=== PATIENT | female | born 1990 | race Caucasian/White ===

== ENCOUNTER 2018-05-21 00:16 | Emergency (ER) | payer SELFPAY ==
[2018-05-21 00:47] VITALS: BP 143/94; PULSE 82; TEMP 98.5; BMI 31.6
--- NOTE | 2018-05-21 01:08 | PDOC ---
Attending Attestation - Resident Resident Name: Jorge Guerra - ED Attending Attestation I have performed the following: I have examined & evaluated the patient, The case was reviewed & discussed with the resident, I agree w/resident's findings & plan - HPI HPI: 05/21/18 01:19 28-year-old female with left-sided abdominal pain radiating into the left flank, aching in nature There is no associated vomiting, diarrhea urinary symptoms or vaginal discharge. - Physicial Exam PE: 05/21/18 01:16 . Agree with resident's exam - Medical Decision Making 05/21/18 01:20 28-year-old female with left-sided abdominal and flank pain Labs and urinalysis pending 05/21/18 02:54 Patient has tenderness along the left flank and left paravertebral musculature including the left iliopsoas, possibly responsible for patient's source of pain CT scan shows an incidental right-sided ovarian cyst with no findings consistent with patient's pain pattern Patient given Toradol 30 mg IM prior to discharge Patient advised to follow-up with her CASTING OPERATOR HELPER in regards to her ovarian cyst and return should her condition worsen in anyway
--- NOTE | 2018-05-21 01:23 | PDOC ---
History of Present Illness - General Chief Complaint: Pain, Acute Stated Complaint: ABD PAIN Time Seen by Provider: 05/21/18 01:05 History Source: Patient - History of Present Illness Initial Comments: 05/21/18 01:16 28f with pmh of c-sections x2 presents to the ed with left flank pain radiating to the groin since last night Sunday 10pm. The pain is colicky and takes her breath away when it peaks. No difficulty urinating. She never had kidneys stones in the past but her sister did. Had some nausea earlier today but no vomiting. Denies dysuria, fever, diarrhea. Past History - Past Medical History Allergies/Adverse Reactions: Allergies Allergy/AdvReac Type Severity Reaction Status Date / Time Penicillins Allergy Severe Itching Verified 05/21/18 02:42 Home Medications: Ambulatory Orders NK [No Known Home Medication] 05/21/18 - Suicide/Smoking/Psychosocial Hx Smoking History: Current some day smoker Number of Cigarettes Smoked Daily: 1 Information on smoking cessation initiated: Yes Hx Alcohol Use: Yes (Social) Drug/Substance Use Hx: No Review of Systems - Review of Systems Able to Perform ROS?: Yes Is the patient limited Bolivian proficient: No Constitutional: No: Symptoms Reported HEENTM: No: Symptoms Reported Respiratory: No: Symptoms reported Cardiac (ROS): No: Symptoms Reported ABD/GI: Yes: See HPI : Yes: See HPI Musculoskeletal: No: Symptoms Reported Integumentary: No: Symptoms Reported Neurological: No: Symptoms reported All Other Systems: Reviewed and Negative *Physical Exam - Vital Signs Last Vital Signs Temp Pulse Resp BP Pulse Ox 98.5 F 82 20 143/94 100 05/21/18 00:38 05/21/18 00:38 05/21/18 00:38 05/21/18 00:38 05/21/18 00:38 - Physical Exam General Appearance: Yes: Nourished, Appropriately Dressed, Moderate Distress HEENT: positive: EOMI, MURIEL, Normal ENT Inspection Respiratory/Chest: positive: Lungs Clear, Normal Breath Sounds. negative: Chest Tender, Respiratory Distress Cardiovascular: positive: Regular Rhythm, Regular Rate, S1, S2 Gastrointestinal/Abdominal: positive: Normal Bowel Sounds, Soft Musculoskeletal: positive: CVA Tenderness (L) Integumentary: positive: Normal Color, Dry, Warm Neurologic: positive: Fully Oriented, Alert, Normal Mood/Affect Moderate Sedation - Procedure Monitoring Vital Signs: Procedure Monitoring Vital Signs Temperature 98.5 F 05/21/18 00:38 Pulse Rate 82 05/21/18 00:38 Respiratory Rate 20 05/21/18 00:38 Blood Pressure 143/94 05/21/18 00:38 O2 Sat by Pulse Oximetry (%) 100 05/21/18 00:38 ED Treatment Course - LABORATORY CBC & Chemistry Diagram: 05/21/18 02:05 05/21/18 02:05 Medical Decision Making - Medical Decision Making 05/21/18 01:31 28F with left cva tenderness with likely stone vs msk strain Will obtain urine preg, UA, cx and spiral renal CT 05/21/18 02:51 Ct negative for stones, positive right 5cm ovarian cyst. Will discharge with toradol and OBGYN follow up *DC/Admit/Observation/Transfer Diagnosis at time of Disposition: Abdominal pain - Discharge Dispostion Disposition: HOME Condition at time of disposition: Improved Decision to Admit order: No - Referrals Referrals: Robyn Ellison MD [Staff Physician] - - Patient Instructions Printed Discharge Instructions: Ovarian Cyst Additional Instructions: Follow up with your obgyn doctor. Come back to the emergency department for any new, worsening or concerning symptom. - Post Discharge Activity
[2018-05-21 01:29] LABS: URINE APPEARANCE CLEAR; URINE BILIRUBIN NEGATIVE (<2.0 mg/dL); URINE COLOR STRAW; URINE GLUCOSE (UA) NEGATIVE (NEGATIVE); URINE KETONE NEGATIVE (NEGATIVE); URINE LEUK ESTERASE NEGATIVE (NEGATIVE); URINE NITRITE NEGATIVE (NEGATIVE); URINE PROTEIN NEGATIVE (NEGATIVE); URINE UROBILINOGEN NEGATIVE mg/dL (0.2-1.0)
[2018-05-21 01:30] LABS: HCG,QUALITATIVE URINE Negative
[2018-05-21] MEDS ORDERED: KETOROLAC TROMETHAMINE 30 MG/1 ML VIAL IM ONE (02:50)
--- NOTE | 2018-05-21 02:55 | PDOC ---
*Physical Exam - Vital Signs Last Vital Signs Temp Pulse Resp BP Pulse Ox 98.5 F 82 20 143/94 100 05/21/18 00:38 05/21/18 00:38 05/21/18 00:38 05/21/18 00:38 05/21/18 00:38 ED Treatment Course - LABORATORY CBC & Chemistry Diagram: 05/21/18 02:05 05/21/18 02:05 - ADDITIONAL ORDERS Additional order review: Laboratory Results 05/21/18 01:20 Urine Color Straw Urine Appearance Clear Urine pH 8.0 Ur Specific [place] 1.010 Urine Protein Negative Urine Glucose (UA) Negative Urine Ketones Negative Urine Blood Negative Urine Nitrite Negative Urine Bilirubin Negative Urine Urobilinogen Negative Ur Leukocyte Esterase Negative Urine HCG, Qual Negative 05/21/18 02:05 RBC Cancelled MCV Cancelled MCHC Cancelled RDW Cancelled MPV Cancelled Neutrophils % Cancelled Lymphocytes % Cancelled Monocytes % Cancelled Eosinophils % Cancelled Basophils % Cancelled - RADIOLOGY Radiology Studies Ordered: Category Date Time Status SPIRAL- RENAL-STONE CT [CT] Stat CT Scan 05/21/18 01:23 Taken *DC/Admit/Observation/Transfer Diagnosis at time of Disposition: Left flank pain - Discharge Dispostion Disposition: HOME Condition at time of disposition: Improved - Referrals Referrals: Robyn Ellison MD [Staff Physician] - - Patient Instructions Printed Discharge Instructions: Ovarian Cyst, DI for Flank Pain Additional Instructions: Follow up with your obgyn doctor. Come back to the emergency department for any new, worsening or concerning symptom. - Post Discharge Activity
[2018-05-21] MEDS ORDERED: KETOROLAC TROMETHAMINE 30 MG/1 ML VIAL ONE (03:15)
[2018-05-21 03:35] LABS: BASO % 1.4 % (0-2.0); EOS % 2.9 % (0-4.5); HEMATOCRIT 44.3 % (32.4-45.2); HEMOGLOBIN 15.7 GM/dL (10.7-15.3); LYMPH % 32.9 % (8-40); MCH 33.3 pg (25.7-33.7); MCHC 35.4 g/dl (32.0-36.0); MEAN CELL VOLUME 94.2 fl (80-96); MEAN PLT VOLUME 8.2 fl (7.5-11.1); MONO % 6.8 % (3.8-10.2); PLATELET COUNT 307 K/MM3 (134-434); RDW 12.8 % (11.6-15.6); WHITE BLOOD COUNT 13.4 K/mm3 (4.0-10.0)
[2018-05-21 04:42] LABS: CREATININE 0.6 mg/dL (0.55-1.3)
[2018-05-21 04:43] LABS: ALBUMIN 3.7 g/dl (3.4-5.0); CO2 26 mmol/L (21-32)
[2018-05-21 04:54] LABS: ALK PHOS 73 U/L (45-117); ANION GAP 7 MMOL/L (8-16); BILIRUBIN,TOTAL 0.3 mg/dL (0.2-1); BLOOD UREA NITROGEN 8 mg/dL (7-18); CALCIUM 9.4 mg/dL (8.5-10.1); CHLORIDE 102 mmol/L (98-107); GLUCOSE,RANDOM 116 mg/dL (74-106); LIPASE 166 U/L (73-393); POTASSIUM 3.9 mmol/L (3.5-5.1); SGOT/AST 37 U/L (15-37); SGPT/ALT 95 U/L (13-61); SODIUM 134 mmol/L (136-145); TOT PROT 7.6 g/dl (6.4-8.2)
--- NOTE | 2018-05-21 04:56 | PDOC ---
*Physical Exam - Vital Signs Last Vital Signs Temp Pulse Resp BP Pulse Ox 98.5 F 82 20 143/94 100 05/21/18 00:38 05/21/18 00:38 05/21/18 00:38 05/21/18 00:38 05/21/18 00:38 ED Treatment Course - LABORATORY CBC & Chemistry Diagram: 05/21/18 03:20 05/21/18 03:20 - ADDITIONAL ORDERS Additional order review: Laboratory Results 05/21/18 05/21/18 05/21/18 03:20 02:05 01:20 Sodium 134 L Cancelled Potassium 3.9 Cancelled Chloride 102 Cancelled Carbon Dioxide 26 Cancelled Anion Gap 7 L Cancelled BUN 8 Cancelled Creatinine 0.6 Cancelled Creat Clearance w eGFR > 60 Cancelled Random Glucose 116 H Cancelled Calcium 9.4 Cancelled Total Bilirubin 0.3 Cancelled AST 37 Cancelled ALT 95 H Cancelled Alkaline Phosphatase 73 Cancelled Total Protein 7.6 Cancelled Albumin 3.7 Cancelled Lipase 166 Cancelled Urine Color Straw Urine Appearance Clear Urine pH 8.0 Ur Specific [place] 1.010 Urine Protein Negative Urine Glucose (UA) Negative Urine Ketones Negative Urine Blood Negative Urine Nitrite Negative Urine Bilirubin Negative Urine Urobilinogen Negative Ur Leukocyte Esterase Negative Urine HCG, Qual Negative 05/21/18 05/21/18 03:20 02:05 RBC 4.70 Cancelled MCV 94.2 Cancelled MCHC 35.4 Cancelled RDW 12.8 Cancelled MPV 8.2 Cancelled Neutrophils % 56.0 Cancelled Lymphocytes % 32.9 Cancelled Monocytes % 6.8 Cancelled Eosinophils % 2.9 Cancelled Basophils % 1.4 Cancelled - RADIOLOGY Radiology Studies Ordered: Category Date Time Status SPIRAL- RENAL-STONE CT [CT] Stat CT Scan 05/21/18 01:23 Taken - Medications Given in the ED: ED Medications Discontinued Medications Generic Name Dose Route Start Last Admin Trade Name Freq PRN Reason Stop Dose Admin Ketorolac Tromethamine 30 mg 05/21/18 02:50 05/21/18 03:23 Toradol Injection - IM 05/21/18 02:51 30 mg ONCE ONE Administration Medical Decision Making - Medical Decision Making 05/21/18 04:54 All labs back WNL PERC rule: zero criteria Well's score: 0 Low suspicion for PE. OK to discharge. *DC/Admit/Observation/Transfer Diagnosis at time of Disposition: Left flank pain - Discharge Dispostion Disposition: HOME Condition at time of disposition: Improved - Referrals Referrals: Robyn Ellison MD [Staff Physician] - - Patient Instructions Printed Discharge Instructions: Ovarian Cyst, DI for Flank Pain Additional Instructions: Follow up with your obgyn doctor. Come back to the emergency department for any new, worsening or concerning symptom. - Post Discharge Activity
== END 2018-05-21 05:11 | disposition home or self-care (01) ==
LOC: JER 00:16
DX: N83.201 Unspecified ovarian cyst, right side (principal)
CPT/HCPCS: 36415; 74176-TC; 80053; 81003; 83690; 84703; 85025; 87086; 99281-25; 99282-25

== ENCOUNTER 2019-04-19 22:17 | Emergency (ER) | payer SELFPAY ==
[2019-04-19 22:29] VITALS: BP 117/77; PULSE 84; TEMP 98.5; BMI 32.1
--- NOTE | 2019-04-19 23:41 | PDOC ---
History of Present Illness - General Chief Complaint: Cold Symptoms Stated Complaint: COLD SYMPTOMS Time Seen by Provider: 04/19/19 22:36 History Source: Patient Exam Limitations: No Limitations Past History - Past Medical History Allergies/Adverse Reactions: Allergies Allergy/AdvReac Type Severity Reaction Status Date / Time Penicillins Allergy Severe Itching Verified 04/19/19 22:53 Home Medications: Ambulatory Orders Oseltamivir Phosphate [Tamiflu] 75 mg PO BID #10 capsule 04/19/19 COPD: No - Psycho Social/Smoking Cessation Hx Smoking History: Never smoked Number of Cigarettes Smoked Daily: 1 Hx Alcohol Use: Yes (Social) Drug/Substance Use Hx: No *Physical Exam - Vital Signs Last Vital Signs Temp Pulse Resp BP Pulse Ox 98.5 F 84 19 117/77 98 04/19/19 22:27 04/19/19 22:27 04/19/19 22:27 04/19/19 22:27 04/19/19 22:27 - Physical Exam General Appearance: No: Apparent Distress HEENT: positive: TMs Normal, Pharynx Normal, Nasal Congestion, Rhinorrhea Respiratory/Chest: positive: Lungs Clear, Normal Breath Sounds. negative: Respiratory Distress Cardiovascular: positive: Regular Rhythm, Regular Rate, S1, S2. negative: Murmur Gastrointestinal/Abdominal: positive: Normal Bowel Sounds, Soft. negative: Tender, Distended, Guarding, Rebound Integumentary: positive: Normal Color Neurologic: positive: Alert Medical Decision Making - Medical Decision Making 28 y/o F with no sig pmh presents with fever from yesterday along with cough, congestion, rhinorrhea, sore throat. Denies sob, cp, abd pain, n/v/d, recent travel. +sick contacts in family. Took Tylenol at 4 PM today. Flu negative However, patient's son, who was also evaluated at the same time, is positive for flu Patient prefers to start Tamiflu medication as well 04/19/19 23:35 Discharge - Discharge Information Problems reviewed: Yes Clinical Impression/Diagnosis: Viral URI Condition: Stable Disposition: HOME - Admission No - Additional Discharge Information Prescriptions: Oseltamivir Phosphate [Tamiflu] 75 mg PO BID #10 capsule Prescription Drug Monitoring Program (I-STOP) results: I-STOP not reviewed - Follow up/Referral - Patient Discharge Instructions Patient Printed Discharge Instructions: DI for Viral Upper Respiratory Infection -- Adult Additional Instructions: Thank you for choosing [facility]. It was a pleasure taking care of you. You have viral infection Alternate between Tylenol every 4 and Motrin every 6 hours as needed for fever Recommend rest and hydration Follow-up with your doctor in 2 days Return to the Emergency Department if your symptoms worsen or persist or have other concerning symptoms. - Post Discharge Activity
== END 2019-04-20 00:23 | disposition home or self-care (01) ==
LOC: JER 22:17
DX: J06.9 Acute upper respiratory infection, unspecified (principal); B97.89 Other viral agents as the cause of diseases classified elsewhere
CPT/HCPCS: 87804; 99281-25

== ENCOUNTER 2019-11-25 02:52 | Emergency (ER) | payer SELFPAY ==
[2019-11-25 03:22] VITALS: BMI 29.2
--- NOTE | 2019-11-25 03:26 | PDOC ---
History of Present Illness - General Chief Complaint: Pain, Acute Stated Complaint: ABD PAIN - History of Present Illness Initial Comments: 11/25/19 03:59 29F w/ h/o recent visit to ED for abdominal pain found to be UTI p/w epigastric, LUQ, LLQ, and suprapubic pain since last night. She was eating tacos and started to feel the pain. She was able to fall asleep around 2300 but woke up at 0200 with more severe pain. She then vomited and has vomited 6 more times, each event occurring after an attempt to drink water. She has never experienced pain like this before, somewhat positional; if she lies on her left side the pain is worse. She denies hematuria, dysuria, vaginal bleeding or discharge. Last time having intercourse was one week ago. She had a hysterectomy in 2014. Denies h/o hernia. Denies flatus and BM since yesterday Had C/S in 2014. Denies fevers, cough, rash. 11/25/19 04:18 11/25/19 04:26 Past History - Travel History Traveled outside of the country in the last 30 days: No Close contact w/someone who was outside of country & ill: No - Medical History Allergies/Adverse Reactions: Allergies Allergy/AdvReac Type Severity Reaction Status Date / Time Penicillins Allergy Severe Itching Verified 11/25/19 03:22 Home Medications: Ambulatory Orders Nitrofurantoin Macrocrystal [Nitrofurantoin] 100 mg PO BID 5 Days #10 capsule 11/07/19 Famotidine [Pepcid] 20 mg PO DAILY #14 tablet 11/25/19 COPD: No - Reproductive History LMP comment: hysterectomy in 2015 Is Patient Now?: No - Psycho-Social/Smoking History Smoking History: Never smoked Have you smoked in the past 12 months: No Number of Cigarettes Smoked Daily: 1 Information on smoking cessation initiated: No - Substance Abuse Hx (Audit-C & DAST Scrn) How often the patient has a drink containing alcohol: Monthly or less Score: In Men: 4 or > Positive; In Women: 3 or > Positive: 0 Screen Result (Pos requires Nsg. Audit-10AR): Negative In the last yr the pt used illegal drug/Rx for NonMed reason: No Score: Yes response is considered Positive: 0 Screen Result (Positive result requires Nsg. DAST-10): Negative Review of Systems - Review of Systems Able to Perform ROS?: Yes Is the patient limited Ecuadorean proficient: No Constitutional: No: Chills, Fever, Weakness, Unintentional Wgt. Loss HEENTM: No: Blurred Vision, Tinnitus Respiratory: No: Cough, SOB with Exertion Cardiac (ROS): No: Chest Pain, Edema ABD/GI: Yes: Nausea, Poor Fluid Intake, Vomiting. No: Abdominal Distended, Blood Streaked Bowels, Rectal Bleeding : No: Burning, Dysuria, Discharge, Frequency, Hematuria Musculoskeletal: No: Muscle Weakness, Neck Pain Integumentary: No: Erythema, Rash Neurological: No: Headache, Tingling, Dizziness Endocrine: No: Excessive Sweating, Increased Urine *Physical Exam - Vital Signs Last Vital Signs Temp Pulse Resp BP Pulse Ox 98.5 F 105 H 20 149/98 100 11/25/19 03:00 11/25/19 03:00 11/25/19 03:00 11/25/19 03:00 11/25/19 03:00 - Physical Exam General Appearance: Yes: Nourished, Appropriately Dressed, Mild Distress HEENT: positive: EOMI, Normal Voice. negative: Nasal Congestion, Rhinorrhea, Excessive drooling Neck: positive: Trachea midline, Supple Respiratory/Chest: positive: Lungs Clear, Normal Breath Sounds. negative: Chest Tender, Respiratory Distress, Accessory Muscle Use, Labored Respiration Cardiovascular: positive: Regular Rate, S1, S2, Tachycardia Gastrointestinal/Abdominal: positive: Normal Bowel Sounds, Tender, Protuberent, Tenderness. negative: Organomegaly, Rebound, Hernia, Hepatomegaly, Splee nomegaly Musculoskeletal: positive: Normal Inspection. negative: CVA Tenderness Integumentary: positive: Normal Color, Dry, Warm, Moist. negative: Jaundice ED Treatment Course - LABORATORY CBC & Chemistry Diagram: 11/25/19 04:38 11/25/19 04:38 Medical Decision Making - Medical Decision Making 11/25/19 04:30 SBO: no flatus + no BM + vomiting + elevated WBC Kidney Stone: elevated WBC + ABD pain. no hematuria or dysuria Hernia: obese + ABD pain Pancreatitis: tender epigastrum. PID/STI: recent sexual activity + LLQ ABD pain. no dysuria, itching, discharge 11/25/19 04:32 11/25/19 06:00 Discharge - Discharge Information Problems reviewed: Yes Clinical Impression/Diagnosis: Abdominal pain, Left ovarian cyst, Vaginal candidiasis, Hemorrhagic cyst of left ovary Condition: Improved Disposition: HOME - Additional Discharge Information Prescriptions: Famotidine [Pepcid] 20 mg PO DAILY #14 tablet - Follow up/Referral Referrals: Flynn Quinones MD [Staff Physician] - - Patient Discharge Instructions Patient Printed Discharge Instructions: DI for Vaginal Yeast Infection, DI for Ovarian Cyst Additional Instructions: Additional Instructions: Please return to the emergency department with any new or worsening symptoms or concerns including worsening pain, inability to tolerate food, persistent vomiting, fever. Please follow up with your primary care physician within 72 hours. Please followup with the referral for Portable Sawmill Operator within 1 week to further evaluate your ovarian cysts and yeast infection. The left ovarian cyst is changed in appearance from your previous CT exam. We have provided you with copies of your CT and transvaginal ultrasound results. Please abstain from taking alcohol for the next week to prevent interactions with the antifungal medication you received in the ER You may take tylenol 650mg as needed for abdominal pain. Please take pepcid 20mg daily for 2 weeks. The script has been sent to the pharmacy here at [facility] across the latif from the ER. Instrucciones adicionales: Regrese al departamento de emergencias con cualquier sntoma nuevo o que empeore o inquietudes, incluido el empeoramiento del dolor, la incapacidad para tolerar los alimentos, los vmitos persistentes y la fiebre. Pretty un seguimiento con krishnan mdico de atencin primaria dentro de las 72 horas. Pretty un seguimiento con la referencia del gineclogo dentro de 1 semana para evaluar ms a fondo ngoc quistes ovricos y la candidiasis. El quiste de ovario mali bianchi cambiado de apariencia con respecto a krishnan examen de TC anterior. Le hemos proporcionado copias de los resultados de krishnan tomografa computarizada y ecografa transvaginal. Abstngase de angie alcohol catlheen la prxima semana para evitar interacciones con el medicamento antimictico que recibi en la derek de emergencias Puede angie tylenol 650 mg segn sea necesario para el dolor abdominal. [place] pepcid 20 mg al da cathleen 2 semanas. El joslyn bianchi sido enviado a la farmacia aqu en [facility] al otro lado del pasillo de la derek de emergencias. Print Language: ARMENIAN - Post Discharge Activity
[2019-11-25] MEDS ORDERED: ACETAMINOPHEN 1000 MG/100 ML VIAL (NON FORMULARY) IVPB ONE (04:16)
[2019-11-25] MEDS ORDERED: LACTATED RINGERS SOLUTION 1000 ML INFUS.BAG IV ONE (04:16)
--- NOTE | 2019-11-25 04:21 | PDOC ---
Attending Attestation - Resident Resident Name: Nuno Wong - ED Attending Attestation I have performed the following: I have examined & evaluated the patient, The case was reviewed & discussed with the resident, I agree w/resident's findings & plan, Exceptions are as noted - HPI HPI: 11/25/19 04:18 29 yo F h/o hysterectomy p/w L sided abdominal pain x2 days. States never had this pain before. Endorses nausea and multiple episodes of vomiting. Last BM was prior to the onset of pain. No flatus since onset of pain. - Physicial Exam PE: 11/25/19 04:20 General: uncomfortable appearing Abdomen: obese limiting exam, soft, +epigastric and LUQ ttp, no rebound, no guarding, no masses - Medical Decision Making 11/25/19 04:20 29 yo F with L sided abdominal pain, possible kidney stone vs. obstruction vs. gastritis. Plan: -labs -urine -CT a/p -pain control as needed -reassess This clinical encounter is taking place during a federal and state health care emergency attributable to the novel Renae Virus pandemic. The [place] of the Department of Health and Human Services has declared, pursuant to the Public Health Service Act 319F-3 (42 U.S.C. 247d-6d), that a covered persons activities related to medical countermeasures against COVID-19 will be immune from liability under Federal and State law. 11/25/19 06:46 Pt. signed out to incoming day team. Discharge - Discharge Information Problems reviewed: Yes Clinical Impression/Diagnosis: Abdominal pain, Left ovarian cyst, Vaginal candidiasis, Hemorrhagic cyst of left ovary Condition: Improved Disposition: HOME - Additional Discharge Information Prescriptions: Famotidine [Pepcid] 20 mg PO DAILY #14 tablet - Follow up/Referral Referrals: Flynn Quinones MD [Staff Physician] - - Patient Discharge Instructions Patient Printed Discharge Instructions: DI for Vaginal Yeast Infection, DI for Ovarian Cyst Additional Instructions: Additional Instructions: Please return to the emergency department with any new or worsening symptoms or concerns including worsening pain, inability to tolerate food, persistent vomiting, fever. Please follow up with your primary care physician within 72 hours. Please followup with the referral for Horizontal Boring Mill Operator within 1 week to further evaluate your ovarian cysts and yeast infection. The left ovarian cyst is changed in appearance from your previous CT exam. We have provided you with copies of your CT and transvaginal ultrasound results. Please abstain from taking alcohol for the next week to prevent interactions with the antifungal medication you received in the ER You may take tylenol 650mg as needed for abdominal pain. Please take pepcid 20mg daily for 2 weeks. The script has been sent to the pharmacy here at [facility] across the lat[place] from the ER. Instrucciones adicionales: Regrese al departamento de emergencias con cualquier sntoma nuevo o que empeore o inquietudes, incluido el empeoramiento del dolor, la incapacidad para tolerar los alimentos, los vmitos persistentes y la fiebre. Pretty un seguimiento con krishnan mdico de atencin primaria dentro de las 72 horas. Pretty un seguimiento con la referencia del gineclogo dentro de 1 semana para evaluar ms a fondo ngoc quistes ovricos y la candidiasis. El quiste de ovario mali bianchi cambiado de apariencia con respecto a krishnan examen de TC anterior. Le hemos proporcionado copias de los resultados de krishnan tomografa computarizada y ecografa transvaginal. Abstngase de angie alcohol cathleen la prxima semana para evitar interacciones con el medicamento antimictico que recibi en la derek de emergencias Puede angie tylenol 650 mg segn sea necesario para el dolor abdominal. [place] pepcid 20 mg al da cathleen 2 semanas. El joslyn bianchi sido enviado a la farmacia aqu en [facility] al otro lado del pasillo de la derek de emergencias. Print Language: CHILEAN - Post Discharge Activity
[2019-11-25] MEDS ORDERED: ACETAMINOPHEN INJECTION 100 ML IVPB ONE (04:22)
[2019-11-25] MEDS ORDERED: FAMOTIDINE 20 MG/50 ML IVPB 20 MG/50 ML MG IVPB ONE ×2 (04:24→04:43)
[2019-11-25] MEDS ORDERED: ONDANSETRON 4 MG/2 ML VIAL IVPUSH ONE (04:25)
[2019-11-25 05:13] LABS: BASO % 0.7 % (0-2.0); EOS % 1.3 % (0-4.5); HEMATOCRIT 42.5 % (32.4-45.2); HEMOGLOBIN 14.5 GM/dL (10.7-15.3); LYMPH % 12.9 % (8-40); MCH 31.7 pg (25.7-33.7); MCHC 34.2 g/dl (32.0-36.0); MEAN CELL VOLUME 92.6 fl (80-96); MEAN PLT VOLUME 8.5 fl (7.5-11.1); MONO % 5.2 % (3.8-10.2); NEUT % 79.9 % (42.8-82.8); PLATELET COUNT 311 K/MM3 (134-434); RBC 4.59 M/mm3 (3.60-5.2); WHITE BLOOD COUNT 16.9 K/mm3 (4.0-10.0)
[2019-11-25 05:26] LABS: ALBUMIN 3.8 g/dl (3.4-5.0); BILIRUBIN,TOTAL 0.6 mg/dL (0.2-1); BLOOD UREA NITROGEN 7.9 mg/dL (7-18); CALCIUM 8.7 mg/dL (8.5-10.1); CREATININE 0.7 mg/dL (0.55-1.3); TOT PROT 7.6 g/dl (6.4-8.2)
[2019-11-25 10:12] VITALS: BP 103/60; PULSE 74; TEMP 98
--- NOTE | 2019-11-25 10:36 | EKG ---
Test Reason : Blood Pressure : / mmHG Vent. Rate : 087 BPM Atrial Rate : 087 BPM P-R Int : 154 ms QRS Dur : 078 ms QT Int : 338 ms P-R-T Axes : 043 023 028 degrees QTc Int : 406 ms NORMAL SINUS RHYTHM NORMAL ECG WHEN COMPARED WITH ECG OF 07-NOV-2019 06:39, NO SIGNIFICANT CHANGE WAS FOUND Confirmed by Emile Blue MD ([id number]) on 11/25/2019 10:36:19 AM Referred By: Confirmed By:Emile Blue MD
--- NOTE | 2019-11-25 10:56 | PDOC ---
*Physical Exam - Vital Signs Last Vital Signs Temp Pulse Resp BP Pulse Ox 98.0 F 74 18 103/60 100 11/25/19 10:11 11/25/19 10:11 11/25/19 10:11 11/25/19 10:11 11/25/19 10:11 ED Treatment Course - LABORATORY CBC & Chemistry Diagram: 11/25/19 04:38 11/25/19 04:38 - ADDITIONAL ORDERS Additional order review: Laboratory Results 11/25/19 11/25/19 04:38 04:30 Sodium 138 Potassium 4.0 Chloride 106 Carbon Dioxide 25 Anion Gap 8 BUN 7.9 Creatinine 0.7 Est GFR (CKD-EPI)AfAm 134.75 Est GFR (CKD-EPI)NonAf 116.26 Random Glucose 113 H Calcium 8.7 Total Bilirubin 0.6 AST 32 ALT 81 H Alkaline Phosphatase 78 Total Protein 7.6 Albumin 3.8 Lipase 57 L Urine HCG, Qual Negative 11/25/19 04:38 RBC 4.59 MCV 92.6 MCHC 34.2 RDW 13.0 MPV 8.5 Neutrophils % 79.9 D Lymphocytes % 12.9 D Monocytes % 5.2 Eosinophils % 1.3 Basophils % 0.7 - Medications Given in the ED: ED Medications Discontinued Medications Generic Name Dose Route Start Last Admin Trade Name Freq PRN Reason Stop Dose Admin Acetaminophen 1,000 mg 11/25/19 04:16 11/25/19 04:46 Ofirmev Injection - IVPB 11/25/19 04:17 1,000 mg ONCE ONE Administration Famotidine/Sodium Chloride 20 mg in 50 mls @ 100 mls/hr 11/25/19 04:24 11/25/19 04:46 Pepcid 20 Mg Premixed Ivpb - IVPB 11/25/19 04:53 100 mls/hr ONCE ONE Administration Lactated Ringer's 1,000 ml 11/25/19 04:16 11/25/19 04:46 Lactated Ringers Solution IV 11/25/19 04:17 1,000 ml ONCE ONE Administration Ondansetron HCl 4 mg 11/25/19 04:25 11/25/19 04:46 Zofran Injection IVPUSH 11/25/19 04:26 4 mg ONCE ONE Administration Medical Decision Making - Medical Decision Making 11/25/19 10:[address] Judith night team 29F w/ h/o recent visit to ED for abdominal pain found to be UTI p/w epigastric, LUQ, LLQ, and suprapubic pain since last night. Will followup CT and dispo appropriately 11/25/19 10:56 CT Abd/Pel: Adnexa: Complex right ovarian cystic structure is redemonstrated and appears similar in size, currently measuring 5.1 x 3.6 cm (compared to 4.7 x 4.3 cm). The aforementioned cyst demonstrates a septation not previously seen and scant adjacent fat stranding, however comparison is limited due to absence of IV contrast on the prior study. Left adnexal cyst measuring 2.4 x 3.2 cm was not clearly visualized on the prior study again due to absence of IV contrast. Bones: No lytic or blastic lesions. Other: Lipoma demonstrated along the left flank, measuring 5.6 x 3.4 cm (image 60, series 1). The aforementioned lipoma has increased in size compared to the prior study. IMPRESSION: Complex right ovarian cystic structure measuring up to 5.1 cm is redemonstrated with scant adjacent fat stranding. Recommend follow-up ultrasound for further characterization of this finding and of th e 3.2 cm left adnexal cyst. Diffuse hepatic steatosis. Left flank lipoma measuring up to 5.6 cm. 11/25/19 12:49 On repeat exam patient with LLQ and suprapubic pain as well as tendnerness. Given CT read and exam findings will proceed with TVUS, UA, and pelvic exam Pelvic exam with normal appearing genitalia, closed cervix with no lesions or blood, clumpy white discharge in the vaginal vault, no CMT or adnexal ttp will treat for candidiasis pending UA and TVUS then dispo 11/25/19 13:31 UA negative with PH>9 likely consistent with torin TVUS: with hemorrhagic cyst will Dc with return pcxns and referrals Discharge - Discharge Information Problems reviewed: Yes Clinical Impression/Diagnosis: Abdominal pain, Left ovarian cyst, Vaginal candidiasis, Hemorrhagic cyst of left ovary Condition: Improved Disposition: HOME - Additional Discharge Information Prescriptions: Famotidine [Pepcid] 20 mg PO DAILY #14 tablet - Follow up/Referral Referrals: Flynn Quinones MD [Staff Physician] - - Patient Discharge Instructions Patient Printed Discharge Instructions: DI for Vaginal Yeast Infection, DI for Ovarian Cyst Additional Instructions: Additional Instructions: Please return to the emergency department with any new or worsening symptoms or concerns including worsening pain, inability to tolerate food, persistent vomiting, fever. Please follow up with your primary care physician within 72 hours. Please followup with the referral for [employer] within 1 week to further evaluate your ovarian cysts and yeast infection. The left ovarian cyst is changed in appearance from your previous CT exam. We have provided you with copies of your CT and transvaginal ultrasound results. Please abstain from taking alcohol for the next week to prevent interactions with the antifungal medication you received in the ER You may take tylenol 650mg as needed for abdominal pain. Please take pepcid 20mg daily for 2 weeks. The script has been sent to the pharmacy here at [facility] across the lat[place] from the ER. Instrucciones adicionales: Regrese al departamento de emergencias con cualquier sntoma nuevo o que empeore o inquietudes, incluido el empeoramiento del dolor, la incapacidad para tolerar los alimentos, los vmitos persistentes y la fiebre. Pretty un seguimiento con krishnan mdico de atencin primaria dentro de las 72 horas. Pretty un seguimiento con la referencia del gineclogo dentro de 1 semana para evaluar ms a fondo ngoc quistes ovricos y la candidiasis. El quiste de ovario mali bianchi cambiado de apariencia con respecto a krishnan examen de TC anterior. Le hemos proporcionado copias de los resultados de krishnan tomografa computarizada y ecografa transvaginal. Abstngase de angie alcohol cathleen la prxima semana para evitar interacciones con el medicamento antimictico que recibi en la derek de emergencias Puede angie tylenol 650 mg segn sea necesario para el dolor abdominal. [place] pepcid 20 mg al da cathleen 2 semanas. El joslyn bianchi sido enviado a la farmacia aqu en [facility] al otro lado del pasillo de la derek de emergencias. Print Language: INDONESIAN - Post Discharge Activity
[2019-11-25] MEDS ORDERED: FLUCONAZOLE 150 MG TABLET PO ONE ×2 (12:49→13:06)
[2019-11-25 13:23] LABS: PH,URINE >= 9.0 (5.0-8.0); URINE APPEARANCE CLEAR; URINE BILIRUBIN NEGATIVE (NEGATIVE); URINE COLOR YELLOW; URINE GLUCOSE (UA) NEGATIVE (NEGATIVE); URINE KETONE NEGATIVE (NEGATIVE); URINE LEUK ESTERASE NEGATIVE (NEGATIVE); URINE NITRITE NEGATIVE (NEGATIVE); URINE PROTEIN NEGATIVE (NEGATIVE); URINE UROBILINOGEN 0.2 mg/dL (0.2-1.0)
== END 2019-11-25 13:56 | disposition home or self-care (01) ==
LOC: JER 02:52
PROC: 3E033NZ Introduction of Analgesics, Hypnotics, Sedatives into Peripheral Vein, Percutaneous Approach (ICD-10-PCS; principal; 2019-11-25)
PROC: 3E033GC Introduction of Other Therapeutic Substance into Peripheral Vein, Percutaneous Approach (ICD-10-PCS; 2019-11-25)
DX: N83.202 Unspecified ovarian cyst, left side (principal); B37.3 Candidiasis of vulva and vagina; R10.9 Unspecified abdominal pain
CPT/HCPCS: 36415; 74177-TC; 76830-TC; 80053; 81003; 83690; 84703; 85025; 87086; 93005; 93010; 99285-25; J0131; Q9967

== ENCOUNTER 2022-01-30 11:23 | Emergency (ER) | payer SELFPAY ==
[2022-01-30 11:34] VITALS: BP 123/69; PULSE 102; RESP 18; TEMP 98.2; BMI 30.7
[2022-01-30] MEDS ORDERED: DEXAMETHASONE SOD PHOSPHATE 10 MG/1 ML VIAL PO ONE (12:03)
[2022-01-30] MEDS ORDERED: ACETAMINOPHEN 500 MG TABLET (FP) PO ONE (12:03)
== END 2022-01-30 15:04 | disposition home or self-care (01) ==
LOC: JER 11:23
DX: J06.9 Acute upper respiratory infection, unspecified (principal)
CPT/HCPCS: 0241U-QW; 99283-25; J1100

== ENCOUNTER 2024-09-29 20:53 | Emergency (ER) | payer SELFPAY ==
[2024-09-29 21:23] VITALS: BP 122/82; PULSE 96; RESP 18; TEMP 98.5; BMI 26.4
[2024-09-29] MEDS: SODIUM CHLORIDE 1,000 ML IV STA (21:52)
[2024-09-29 22:12] LABS: ABSOLUTE IMMATURE GRANULOCYTES 0.06 x10^3/uL (0.0-0.031); BASOPHILS # 0.08 x10^3/uL (0.01-0.08); BG HCT 46.0 % (32.4-45.2); EOSINOPHIL % 2.0 % (0.7-5.8); EOSINOPHILS # 0.17 x10^3/uL (0.04-0.36); MCHC 34.2 g/dl (32.2-35.5); MEAN CELL VOLUME 91.6 fl (79.4-94.8); MEAN PLT VOLUME 10.0 fl (9.4-12.3); MONOCYTE # 0.83 x10^3/uL (0.24-0.86); MONOCYTE % 9.8 % (4.7-12.5); RDW 11.9 % (12.1-16.8); VENOUS BASE EXCESS -1.2 mmol/L (-2-2); VENOUS O2 SATURATION 82.2 % (70-80); VENOUS PCO2 42.7 mmHg (38-52); VENOUS PH 7.371 (7.310-7.410)
[2024-09-29 22:18] LABS: EPI CELLS 7 /uL (0-25.1); HYALINE CASTS 0 /uL (0-3.1); URINE APPEARANCE CLEAR; URINE BACTERIA 676 /uL (0-1359); URINE BILIRUBIN NEGATIVE (NEGATIVE); URINE COLOR YELLOW; URINE GLUCOSE (UA) 3+ (NEGATIVE); URINE KETONE 1+ (NEGATIVE); URINE LEUK ESTERASE 1+ (NEGATIVE); URINE NITRITE NEGATIVE (NEGATIVE); URINE PROTEIN NEGATIVE (NEGATIVE); URINE RBC 6 /uL (0-23.9); URINE UROBILINOGEN 0.2 mg/dL (0.2-1.0); URINE WBC 132 /uL (0-25.8)
[2024-09-29 22:24] LABS: INR 0.8 (0.83-1.09); PROTHROMBIN TIME (PATIENT) 8.8 SEC (9.7-13.0)
[2024-09-29 22:27] LABS: ACTIVATED PTT 24.1 SECONDS (25.2-36.5)
[2024-09-29 23:08] LABS: CO2 25 mmol/L (21-32)
[2024-09-29 23:11] LABS: CREATININE 1.2 mg/dL (0.55-1.3); SGOT/AST 4 U/L (15-37); SGPT/ALT 22 U/L (13-61)
[2024-09-29 23:12] LABS: TOT PROT 7.3 g/dl (6.4-8.2)
[2024-09-29 23:13] LABS: ALK PHOS 76 U/L (45-117)
[2024-09-29] MEDS ORDERED: CEPHALEXIN MONOHYDRATE 500 MG CAPSULE (UD) ONE (23:19)
[2024-09-29] MEDS: CEPHALEXIN MONOHYDRATE 500 MG CAPSULE (UD) PO ONE (23:22)
[2024-09-29] MEDS: INSULIN (NOVOLOG) ASPART 100 UNITS/ML 10ML VIAL SQ ONE (23:22)
[2024-09-29 23:32] LABS: GLUCOSE,RANDOM 540 mg/dL (74-106)
[2024-09-30 00:12] LABS: HIV INTERPRETATION NEGATIVE (NEGATIVE)
[2024-09-30 00:14] LABS: HCV DIAGNOSTIC IN-HOUSE W/RFLX NON-REACTIVE (NONREACTIVE)
== END 2024-09-30 01:00 | disposition home or self-care (01) ==
LOC: JER 20:53
PROC: 3E0337Z Introduction of Electrolytic and Water Balance Substance into Peripheral Vein, Percutaneous Approach (ICD-10-PCS; principal; 2024-09-29)
PROC: 3E013VG Introduction of Insulin into Subcutaneous Tissue, Percutaneous Approach (ICD-10-PCS; 2024-09-29)
DX: E11.65 Type 2 diabetes mellitus with hyperglycemia (principal); N39.0 Urinary tract infection, site not specified; R00.2 Palpitations; R30.0 Dysuria; R35.0 Frequency of micturition; R13.10 Dysphagia, unspecified; E86.0 Dehydration; Z91.148 Patient's other noncompliance with medication regimen for other reason; T38.3X6A Underdosing of insulin and oral hypoglycemic [antidiabetic] drugs, initial encounter
CPT/HCPCS: 36415; 71045-TC-FY; 80053; 81003; 82010; 82803; 82962; 83605; 83735; 84100; 85025; 85610; 85730; 86803; 86850; 86900; 86901; 87086; 87389; 87637-QW; 93005; 93010; 99285-25